=== PATIENT | male | born 1980 | race Caucasian/White ===

== ENCOUNTER 2019-01-04 14:23 | Emergency (ER) | payer BC ==
--- NOTE | 2019-01-04 15:06 | CPEKG ---
Test Reason : OPEN Blood Pressure : / mmHG Vent. Rate : 091 BPM Atrial Rate : 092 BPM P-R Int : 172 ms QRS Dur : 078 ms QT Int : 356 ms P-R-T Axes : 068 039 029 degrees QTc Int : 439 ms Sinus rhythm Confirmed by Gorge Baltazar ([id number]) on 01/04/2019 3:06:10 PM Referred By: PHYSICIAN ED Confirmed By:Gorge Baltazar
[2019-01-04] MEDS ORDERED: NS 500 ML IV ONE (15:12)
[2019-01-04 15:18] LABS: PLATELET COUNT 199 10^3/uL (150-400)
--- NOTE | 2019-01-04 15:18 | EDPHY ---
H & P Stated Complaint: anxiety attack, left arm numbness, shaking, chest tight, Time Seen by Provider: 01/04/19 15:01 HPI/ROS: CHIEF COMPLAINT: Left arm tingling and chest tightness HISTORY OF PRESENT ILLNESS: Patient is a 38-year-old man with a history of anxiety as well as alcoholism. He states that about 2 hr ago he began to notice some tingling in his left arm. This made him extremely anxious and he began having a panic attack. He then noticed some tingling in both hands as well as some tightness in his chest. He states the symptoms wax and wane to some degree . No fevers or recent illness. No cough or shortness of breath. No diaphoresis. He did feel slightly lightheaded while waiting in the waiting room. No history of cardiac disease. No recent travel. He does use smokeless tobacco. No leg pain or swelling. He states that he has had alcohol withdrawal symptoms before but they did not feel like this. He states that he has been gradually weaning himself off over the last several weeks and today he took a shot of alcohol just before coming to the ER. Severity: Moderate Modifying factors: Improving with calming techniques REVIEW OF SYSTEMS: Constitutional: denies: chills, fever, recent illness, recent injury EENTM: denies: blurred vision, double vision, nose congestion Respiratory: denies: cough, shortness of breath Cardiac: See HPI Gastrointestinal/Abdominal: denies: abdominal pain, diarrhea, nausea, vomiting, blood streaked stools Genitourinary: denies: dysuria, frequency, hematuria, pain Musculoskeletal: denies: joint pain, muscle pain Skin: denies: lesions, rash, jaundice, bruising Neurological: denies: headache, numbness, paresthesia, tingling, dizziness, weakness Hematologic/Lymphatic: denies: blood clots, easy bleeding, easy bruising Immunologic/allergic: denies: HIV/AIDS, transplant 10 systems reviewed and negative except as noted EXAM: GENERAL: Well-appearing, well-nourished and in no acute distress. HEAD: Atraumatic, normocephalic. EYES: Pupils equal round and reactive to light, extraocular movements intact, sclera anicteric, conjunctiva are normal. ENT: TMs normal, nares patent, oropharynx clear without exudates. Moist mucous membranes. NECK: Normal range of motion, supple without lymphadenopathy or JVD. LUNGS: Breath sounds clear to auscultation bilaterally and equal. No wheezes rales or rhonchi. HEART: Regular rate and rhythm without murmurs, rubs or gallops. ABDOMEN: Soft, nontender, normoactive bowel sounds. No guarding, no rebound. No masses appreciated. BACK: No CVA tenderness, no spinal tenderness, step-offs or deformities EXTREMITIES: Normal range of motion, no pitting or edema. No clubbing or cyanosis. NEUROLOGICAL: Cranial nerves II through XII grossly intact. Normal speech, normal gait. 5/5 strength, normal movement in all extremities, normal sensation , normal reflexes PSYCH: Normal mood, normal affect. SKIN: Warm, dry, normal turgor, no visible rashes or lesions. Source: Patient Exam Limitations: No limitations - Personal History Current Tetanus/Diphtheria Vaccine: Yes Current Tetanus Diphtheria and Acellular Pertussis (TDAP): Yes - Medical/Surgical History Hx Asthma: No Hx Chronic Respiratory Disease: No Hx Diabetes: No Hx Cardiac Disease: No Hx Renal Disease: No Hx Cirrhosis: No Hx Alcoholism: No Hx HIV/AIDS: No Hx Splenectomy or Spleen Trauma: No Other PMH: Anxiety, alcoholism - Social History Smoking Status: Never smoked Alcohol Use: Occasionally Drug Use: None Constitutional: Initial Vital Signs Temperature (C) 37 C 01/04/19 14:32 Heart Rate 98 01/04/19 14:32 Respiratory Rate 18 01/04/19 14:32 Blood Pressure 152/126 H 01/04/19 14:32 O2 Sat (%) 99 01/04/19 14:32 O2 Delivery Mode Room Air Allergies/Adverse Reactions: No Known Allergies Allergy (Unverified 01/04/19 14:31) Home Medications: Medication Instructions Recorded Baclofen 01/04/19 Naltrexone 01/04/19 clonazePAM [CLONAZEPAM] 0.5 mg PO BID PRN #10 tab.rapdis 01/04/19 Medical Decision Making - Diagnostics EKG Interpretation: An EKG obtained and was read and documented in trace view. Please see trace view for full reading and report. Sinus rhythm, nonspecific ST depression in lead V3 and 4. No previous for comparison. Imaging Results: Imaging Impressions Chest X-Ray 01/04/19 15:12 Impression: Normal chest x-ray. Imaging: Discussed imaging studies w/ call center operator Radiologist ED Course/Re-evaluation: 3:45 p.m. we discussed the test results which are reassuring. The patient is currently asymptomatic. We engaged in shared decision making and he agreed to do a 3 hr troponin and repeat EKG. He is also asking for refill of Klonopin which she previously took for anxiety. He does not wish to have any medications now. 6:20 p.m. the patient's repeat EKG and troponin her reassuring. He is eager to go home. He is currently asymptomatic. I will have him follow up with Cardiology. Differential Diagnosis: Partial list of the Differential diagnosis considered include but were not limited to; anxiety, acute coronary disease, PE and although unlikely based on the history and physical exam, I also considered pneumonia, pneumothorax. I discussed these differential diagnoses and the plan with the patient as well as the usual and expected course. The patient understands that the diagnosis is provisional and that in medicine we are not always correct and that further workup is often warranted. Usual and customary warnings were given. All of the patient's questions were answered. The patient was instructed to return to the emergency department should the symptoms at all worsen or return, otherwise to followup with the physician as we discussed. - Data Points Laboratory Results: Laboratory Results 01/04/19 15:05 01/04/19 15:05 01/04/19 01/04/19 01/04/19 18:14 15:10 15:05 WBC RBC Hgb Hct MCV MCH MCHC RDW Plt Count MPV Neut % (Auto) Lymph % (Auto) Mcdonough % (Auto) Eos % (Auto) Baso % (Auto) Nucleat RBC Rel Count Absolute Neuts (auto) Absolute Lymphs (auto) Absolute Monos (auto) Absolute Eos (auto) Absolute Basos (auto) Absolute Nucleated RBC Immature Gran % Immature Gran # PT INR APTT D-Dimer Sodium 140 mEq/L mEq/L (135-145) Potassium 3.3 mEq/L L mEq/L (3.5-5.2) Chloride 107 mEq/L mEq/L (97-110) Carbon Dioxide 18 mEq/l L mEq/l (22-31) Anion Gap 15 mEq/L H mEq/L (6-14) BUN 9 mg/dL mg/dL (7-23) Creatinine 0.7 mg/dL mg/dL (0.7-1.3) Estimated GFR > 60 Glucose 180 mg/dL H mg/dL (70-100) Calcium 10.0 mg/dL mg/dL (8.5-10.4) POC Troponin I 0.01 ng/mL ng/mL 0.00 ng/mL ng/mL (0.00-0.08) (0.00-0.08) 01/04/19 01/04/19 15:05 15:05 WBC 6.48 10^3/uL 10^3/uL (3.80-9.50) RBC 4.55 10^6/uL 10^6/uL (4.40-6.38) Hgb 14.5 g/dL g/dL (13.7-17.5) Hct 41.2 % % (40.0-51.0) MCV 90.5 fL fL (81.5-99.8) MCH 31.9 pg pg (27.9-34.1) MCHC 35.2 g/dL g/dL (32.4-36.7) RDW 11.9 % % (11.5-15.2) Plt Count 199 10^3/uL 10^3/uL (150-400) MPV 10.2 fL fL (8.7-11.7) Neut % (Auto) 76.8 % H % (39.3-74.2) Lymph % (Auto) 15.6 % % (15.0-45.0) Mcdonough % (Auto) 6.5 % % (4.5-13.0) Eos % (Auto) 0.6 % % (0.6-7.6) Baso % (Auto) 0.3 % % (0.3-1.7) Nucleat RBC Rel Count 0.0 % % (0.0-0.2) Absolute Neuts (auto) 4.98 10^3/uL 10^3/uL (1.70-6.50) Absolute Lymphs (auto) 1.01 10^3/uL 10^3/uL (1.00-3.00) Absolute Monos (auto) 0.42 10^3/uL 10^3/uL (0.30-0.80) Absolute Eos (auto) 0.04 10^3/uL 10^3/uL (0.03-0.40) Absolute Basos (auto) 0.02 10^3/uL 10^3/uL (0.02-0.10) Absolute Nucleated RBC 0.00 10^3/uL 10^3/uL (0-0.01) Immature Gran % 0.2 % % (0.0-1.1) Immature Gran # 0.01 10^3/uL 10^3/uL (0.00-0.10) PT 13.2 SEC SEC (12.0-15.0) INR 1.04 (0.83-1.16) APTT 24.0 SEC SEC (23.0-38.0) D-Dimer 0.36 ug/mLFEU ug/mLFEU (0.00-0.50) Sodium Potassium Chloride Carbon Dioxide Anion Gap BUN Creatinine Estimated GFR Glucose Calcium POC Troponin I Medications Given: Discontinued Medications Sodium Chloride (Ns) 500 mls @ 0 mls/hr IV EDNOW ONE; Wide Open PRN Reason: Protocol Stop: 01/04/19 15:13 Last Admin: 01/04/19 16:07 Dose: 500 mls Point of Care Test Results: Chemistry 01/04/19 01/04/19 18:14 15:10 POC Troponin I 0.01 ng/mL ng/mL 0.00 ng/mL ng/mL (0.00-0.08) (0.00-0.08) Departure - Departure Disposition: Home, Routine, Self-Care Clinical Impression: Anxiety Chest pain Qualifiers: Chest pain type: unspecified Qualified Code(s): R07.9 - Chest pain, unspecified Condition: Fair Instructions: Chest Pain (ED), Anxiety (ED) Referrals: NONE *PRIMARY CARE P,. [Primary Care Provider] - As per Instructions Cass Tovar MD [Medical Doctor] - 2-3 days, call for appt. Prescriptions: clonazePAM [CLONAZEPAM] 0.5 mg PO BID PRN #10 tab.rapdis PRN Reason: Anxiety
[2019-01-04 15:27] LABS: INR 1.04 (0.83-1.16); PROTIME(PATIENT) 13.2 SEC (12.0-15.0)
--- NOTE | 2019-01-04 18:36 | CPEKG ---
Test Reason : OPEN Blood Pressure : / mmHG Vent. Rate : 068 BPM Atrial Rate : 068 BPM P-R Int : 155 ms QRS Dur : 074 ms QT Int : 388 ms P-R-T Axes : 020 037 027 degrees QTc Int : 413 ms Sinus rhythm Confirmed by Brigitte Blair ([id number]) on 01/04/2019 6:36:12 PM Referred By: BRIGITTE BLAIR Confirmed By:Brigitte Blair
[2019-01-04 18:47] VITALS: BP 137/95
== END 2019-01-04 18:46 | disposition home or self-care (01) ==
DX: F41.9 Anxiety disorder, unspecified (principal); R07.9 Chest pain, unspecified; E86.9 Volume depletion, unspecified
CPT/HCPCS: 84484-ER